=== PATIENT | male | born 1970 | race Hispanic/Latino ===

== ENCOUNTER 2018-06-09 18:32 | Emergency (ER) | payer MEDICAID ==
[2018-06-09 19:59] LABS: BASOPHILS % (AUTO) 0.7 % (0.0-5.0); EOSINOPHILS % (AUTO) 8.2 % (0.0-8.0); HEMATOCRIT 40.2 % (42-54); MEAN CORPUSCULAR HEMOGLOBIN 29.1 pg (27.0-33.0); MEAN CORPUSCULAR HGB CONC 33.2 g/dL (32.0-36.0); MEAN CORPUSCULAR VOLUME 87.7 fL (79-99); MONOCYTES % (AUTO) 8.4 % (3.0-13.0); NEUTROPHILS % (AUTO) 59.7 % (40.0-77.0); PLATELET COUNT (AUTO) 202 K/uL (130-400); RED BLOOD CELL COUNT(AUTO) 4.58 MIL/uL (4.50-6.20); RED CELL DISTRIBUTION WIDTH 14.8 % (11.0-15.5); WHITE BLOOD COUNT (AUTO) 9.4 K/uL (4.8-10.8)
[2018-06-09 20:10] LABS: POTASSIUM 4.1 mmol/L (3.5-5.1)
[2018-06-09 20:15] LABS: ALBUMIN 3.3 g/dL (3.5-5.0); BILIRUBIN,TOTAL 0.5 mg/dL (0.2-1.0); TOTAL PROTEIN, SERUM 7.4 g/dL (6.0-8.3)
[2018-06-09] MEDS ORDERED: CEFTRIAXONE SODIUM 1 GM ONE (22:27)
[2018-06-09] MEDS ORDERED: SODIUM CHLORIDE 0.9% 50 ML IV ONE (22:27)
[2018-06-09 22:50] LABS: APPEARANCE,URINE Clear (CLEAR); BILIRUBIN,URINE Negative (NEGATIVE); COLOR,URINE Yellow (YELLOW); GLUCOSE, URINE (UA) Negative (NEGATIVE); KETONES,URINE Trace mg/dL (NEGATIVE); LEUKOCYTE ESTERASE ,URINE Negative (NEGATIVE); NITRATE,URINE Negative (NEGATIVE); OCCULT BLOOD,URINE Negative (NEGATIVE); PH,URINE 5.5 (5.0-8.0); PROTEIN,URINE Negative (NEGATIVE)
[2018-06-09 22:58] LABS: AMPHET/METH SCREEN,URINE NEGATIVE (NEGATIVE); BARBITURATE SCREEN, URINE NEGATIVE (NEGATIVE); BENZODIAZEPINES SCREEN,URINE NEGATIVE (NEGATIVE); CANNABINOID SCREEN,URINE NEGATIVE (NEGATIVE); COCAINE SCREEN,URINE NEGATIVE (NEGATIVE); OPIATE SCREEN,URINE NEGATIVE (NEGATIVE); PHENCYCLIDINE SCREEN,URINE NEGATIVE (NEGATIVE)
[2018-06-09] MEDS ORDERED: FUROSEMIDE 10 MG/ML 4ML VIAL ONE (23:35)
== END 2018-06-10 00:24 | disposition home or self-care (01) ==
LOC: EDH 18:32
DX: L03.115 Cellulitis of right lower limb (principal); R60.0 Localized edema; E66.01 Morbid (severe) obesity due to excess calories; E11.9 Type 2 diabetes mellitus without complications; Z68.45 Body mass index [BMI] 70 or greater, adult
CPT/HCPCS: 36415; 80053; 80305; 81003; 83605 ×2; 83880; 85025; 87040 ×2; 93971; 96374; 96375; 99285; J0696; J1940

== ENCOUNTER 2019-06-13 11:05 | Emergency (ER) | payer MEDICAID ==
[2019-06-13 11:46] LABS: BASOPHILS % (AUTO) 0.4 % (0.0-5.0); EOSINOPHILS % (AUTO) 0.5 % (0.0-8.0); HEMATOCRIT 40.4 % (42-54); LYMPHOCYTES % (AUTO) 13.8 % (21.0-51.0); MEAN CORPUSCULAR HEMOGLOBIN 29.5 pg (27.0-33.0); MEAN CORPUSCULAR VOLUME 86.7 fL (79-99); MONOCYTES % (AUTO) 4.1 % (3.0-13.0); NEUTROPHILS % (AUTO) 81.2 % (40.0-77.0); PLATELET COUNT (AUTO) 225 K/uL (130-400); RED BLOOD CELL COUNT(AUTO) 4.66 MIL/uL (4.50-6.20); RED CELL DISTRIBUTION WIDTH 14.7 % (11.0-15.5); WHITE BLOOD COUNT (AUTO) 13.7 K/uL (4.8-10.8)
[2019-06-13 11:57] LABS: CREATININE 0.8 mg/dL (0.5-1.5); POTASSIUM 3.8 mmol/L (3.5-5.1)
[2019-06-13 12:03] LABS: ALBUMIN 3.1 g/dL (3.5-5.0); TOTAL PROTEIN, SERUM 7.5 g/dL (6.0-8.3)
[2019-06-13 12:07] LABS: INR 1.03 (0.85-1.15); PARTIAL THROMBOPLASTIN TIME 27.5 SEC (26.3-35.5); PROTHROMBIN TIME 10.8 SEC (9.6-11.6)
[2019-06-13 12:53] LABS: ERYTHROCYTE SEDIMENTATION RATE 31 MM/HR (0-20)
[2019-06-13] MEDS ORDERED: SULFAMETHOX-TMP DS 800/160 TAB ONE (13:27)
[2019-06-13] MEDS ORDERED: LIDOCAINE HCL-MPF 1% 2ML VIAL ONE (13:28)
[2019-06-13] MEDS ORDERED: CEFTRIAXONE SODIUM 1 GM ONE (13:28)
== END 2019-06-13 14:29 | disposition home or self-care (01) ==
LOC: EDH 11:05
DX: L03.116 Cellulitis of left lower limb (principal); L03.115 Cellulitis of right lower limb; E11.9 Type 2 diabetes mellitus without complications; E66.9 Obesity, unspecified; Z68.45 Body mass index [BMI] 70 or greater, adult; Z90.49 Acquired absence of other specified parts of digestive tract; Z72.0 Tobacco use
CPT/HCPCS: 36415; 80053; 83605; 85025; 85610; 85651; 85730; 87040; 93970; 96372; 99285; J0696; J3490

== ENCOUNTER 2023-01-29 10:01 | Inpatient (IN) | payer MEDICAID ==
[~2023-01-29] VITALS: Ht 170.2 cm; Wt 181.1 kg
[2023-01-29 10:28] LABS: BASOPHILS % (AUTO) 0.7 % (0.0-5.0); EOSINOPHILS % (AUTO) 9.5 % (0.0-8.0); LYMPHOCYTES % (AUTO) 30.9 % (21.0-51.0); MEAN CORPUSCULAR HGB CONC 32.8 g/dL (32.0-36.0); MEAN CORPUSCULAR VOLUME 88.4 fL (79-99); MONOCYTES % (AUTO) 8.1 % (3.0-13.0); NEUTROPHILS % (AUTO) 50.4 % (40.0-77.0); PLATELET COUNT (AUTO) 260 K/uL (130-400); RED BLOOD CELL COUNT(AUTO) 4.41 MIL/uL (4.50-6.20); RED CELL DISTRIBUTION WIDTH 14.1 % (11.0-15.5); WHITE BLOOD COUNT (AUTO) 8.1 K/uL (4.8-10.8)
[2023-01-29 10:39] LABS: CREATININE 0.7 mg/dL (0.5-1.5); POTASSIUM 3.7 mmol/L (3.5-5.1)
[2023-01-29 10:44] LABS: ALBUMIN 3.2 g/dL (3.5-5.0); TOTAL PROTEIN, SERUM 7.3 g/dL (6.0-8.3)
[2023-01-29 11:20] LABS: B-TYPE NATRIURETIC PEPTIDE 18 pg/mL (0-100)
[2023-01-29] MEDS ORDERED: ZOSYN 3.375GM +NS 50ML IVPB SCH (13:00)
[2023-01-29] MEDS ORDERED: 0.9%NACL 50ML IV SCH (13:00)
[2023-01-29] MEDS: CEFAZOLIN SODIUM 2 GM VIAL IVPB SCH ×2 (14:30→23:12)
[2023-01-29 14:57] LABS: CRP QUANTITATIVE 12.3 mg/L (0.00-9.0); THYROID STIMULATING HORMONE 1.56 uIU/mL (0.36-3.74)
[2023-01-29] MEDS ORDERED: CEFAZOLIN SODIUM 2 GM VIAL ONE (14:57)
[2023-01-29 15:33] LABS: HEMOGLOBIN A1C 7.2 % (4.0-6.0)
[2023-01-29] MEDS: INSULIN HUMULIN R 100 UNIT/ML 3ML SQ SCH ×2 (16:30→21:00)
[2023-01-29 18:05] VITALS: BP 170/72
[2023-01-29 20:22] VITALS: BP 139/72
[2023-01-30] VITALS (7 sets, daily range): BP systolic 122–144; BP diastolic 60–90
[2023-01-30] MEDS: CEFAZOLIN SODIUM 2 GM VIAL IVPB SCH ×3 (05:44→22:23)
[2023-01-30] MEDS ORDERED: LINA5TAB PO (05:54)
[2023-01-30] MEDS ORDERED: GLIP10TA19 PO (05:54)
[2023-01-30] MEDS ORDERED: FURO20TA4 PO (05:54)
[2023-01-30] MEDS ORDERED: SIMV-46 PO (05:54)
[2023-01-30] MEDS ORDERED: SEMA1PEN3 SQ (05:54)
[2023-01-30] MEDS ORDERED: MIRA25TA PO (05:54)
[2023-01-30] MEDS ORDERED: REPA0.5T6 PO (05:54)
[2023-01-30] MEDS ORDERED: CETI10TA57 PO (05:54)
[2023-01-30 06:17] LABS: BASOPHILS % (AUTO) 0.7 % (0.0-5.0); EOSINOPHILS % (AUTO) 7.3 % (0.0-8.0); HEMATOCRIT 38.6 % (42-54); LYMPHOCYTES % (AUTO) 32.1 % (21.0-51.0); MEAN CORPUSCULAR HEMOGLOBIN 29.2 pg (27.0-33.0); MEAN CORPUSCULAR HGB CONC 33.2 g/dL (32.0-36.0); MEAN CORPUSCULAR VOLUME 88.1 fL (79-99); MONOCYTES % (AUTO) 7.4 % (3.0-13.0); NEUTROPHILS % (AUTO) 52.1 % (40.0-77.0); PLATELET COUNT (AUTO) 265 K/uL (130-400); RED BLOOD CELL COUNT(AUTO) 4.38 MIL/uL (4.50-6.20); WHITE BLOOD COUNT (AUTO) 8.5 K/uL (4.8-10.8)
[2023-01-30 06:30] LABS: CREATININE 0.7 mg/dL (0.5-1.5); POTASSIUM 3.9 mmol/L (3.5-5.1)
[2023-01-30] MEDS: INSULIN HUMULIN R 100 UNIT/ML 3ML SQ SCH ×4 (06:30→20:28)
[2023-01-30] MEDS ORDERED: ENOXAPARIN SODIUM 30 MG/0.3 ML SQ SCH (09:00)
[2023-01-30] MEDS ORDERED: MORPHINE 2 MG SYG IVP PRN (12:30)
[2023-01-30] MEDS ORDERED: ACETAMINOPHEN 325 MG TAB PO PRN (12:30)
[2023-01-30] MEDS: FUROSEMIDE 20MG VIAL IV SCH (12:30)
[2023-01-30] MEDS ORDERED: ONDANSETRON 4MG INJ IVP PRN (12:30)
[2023-01-30] MEDS: REPAGLINIDE 1 MG TAB PO SCH ×2 (14:00→20:10)
[2023-01-30] MEDS: FAMOTIDINE 20MG VIAL IV SCH (20:10)
[2023-01-30] MEDS ORDERED: SIMVASTATIN 20 MG TABLET PO SCH (21:00)
[2023-01-31] MEDS: FUROSEMIDE 20MG VIAL IV SCH ×2 (00:05→12:32)
[2023-01-31 03:30] VITALS: BP 151/85
[2023-01-31 05:05] LABS: EOSINOPHILS % (AUTO) 6.4 % (0.0-8.0); HEMATOCRIT 39.8 % (42-54); LYMPHOCYTES % (AUTO) 31.7 % (21.0-51.0); MEAN CORPUSCULAR HEMOGLOBIN 29.8 pg (27.0-33.0); MEAN CORPUSCULAR HGB CONC 33.4 g/dL (32.0-36.0); MEAN CORPUSCULAR VOLUME 89.2 fL (79-99); NEUTROPHILS % (AUTO) 51.3 % (40.0-77.0); PLATELET COUNT (AUTO) 286 K/uL (130-400); RED BLOOD CELL COUNT(AUTO) 4.46 MIL/uL (4.50-6.20)
[2023-01-31 05:32] LABS: ALBUMIN 3.4 g/dL (3.5-5.0); CREATININE 0.8 mg/dL (0.5-1.5); POTASSIUM 3.6 mmol/L (3.5-5.1); TOTAL PROTEIN, SERUM 7.7 g/dL (6.0-8.3)
[2023-01-31] MEDS: INSULIN HUMULIN R 100 UNIT/ML 3ML SQ SCH ×2 (05:52→11:30)
[2023-01-31] MEDS: CEFAZOLIN SODIUM 2 GM VIAL IVPB SCH (05:56)
[2023-01-31 08:00] VITALS: BP 129/70
[2023-01-31] MEDS: FAMOTIDINE 20MG VIAL IV SCH (08:30)
[2023-01-31] MEDS: REPAGLINIDE 1 MG TAB PO SCH (08:30)
[2023-01-31] MEDS ORDERED: MIRABEGRON PO SCH (09:00)
[2023-01-31] MEDS ORDERED: ENOXAPARIN SODIUM 30 MG/0.3 ML SQ SCH (09:00)
[2023-01-31] MEDS ORDERED: CETIRIZINE HCL 5 MG TABLET PO SCH (09:00)
[2023-01-31 12:00] VITALS: BP 132/69
[2023-02-06] MEDS ORDERED: SEMAGLUTIDE 1 MG SQ SCH (09:00)
== END 2023-01-31 15:35 | disposition home or self-care (01) | DRG 383 ==
LOC: EDH 10:01 → EDHIP 10:02 → UNDOADMIN 14:15 → 3CH 17:41 → EDHIP 17:41
PROVIDERS: ADMIT Hospitalist; ATTEND Hospitalist
DX: L03.115 Cellulitis of right lower limb (principal); Z68.44 Body mass index [BMI] 60.0-69.9, adult; E66.01 Morbid (severe) obesity due to excess calories; L03.116 Cellulitis of left lower limb; E11.9 Type 2 diabetes mellitus without complications; I10 Essential (primary) hypertension; Z83.3 Family history of diabetes mellitus
CPT/HCPCS: 36415; 80048; 80053; 82948; 83036; 83605; 83880; 84145; 84443; 85025; 86140; 87040; 93306; 93356; 93925; 93970; G0378; J1650; J1940; J3490